=== PATIENT | female | born 1945 | race Caucasian/White ===

== ENCOUNTER → 2024-02-23 07:33 | Outpatient (REF) | payer OTHER, SELFPAY | LOC: HWRAD 07:33 | PROVIDERS: ATTENDING PHYSICIAN Emergency Medicine | DX: M54.2 Cervicalgia (principal) | CPT/HCPCS: 72052 ==

== ENCOUNTER → 2024-05-16 07:03 | Outpatient (REF) | payer OTHER, SELFPAY | LOC: HWWDC 07:03 | PROVIDERS: ATTENDING PHYSICIAN Emergency Medicine | DX: Z12.31 Encounter for screening mammogram for malignant neoplasm of breast (principal) | CPT/HCPCS: 77063; 77067 ==

== ENCOUNTER → 2024-09-01 07:22 | Outpatient (REF) | payer OTHER, SELFPAY | LOC: HWRAD 07:22 | PROVIDERS: ATTENDING PHYSICIAN Internal Medicine Critical Care Medicine; FAMILY PHYSICIAN Emergency Medicine | DX: R49.0 Dysphonia (principal); R91.1 Solitary pulmonary nodule | CPT/HCPCS: 71250; 76536 ==

== ENCOUNTER → 2025-01-29 07:41 | Outpatient (REF) | payer OTHER, SELFPAY | LOC: HWRAD 07:41 | PROVIDERS: ATTENDING PHYSICIAN Internal Medicine Nephrology; FAMILY PHYSICIAN Emergency Medicine | DX: I10 Essential (primary) hypertension (principal); N18.31 Chronic kidney disease, stage 3a | CPT/HCPCS: 76770 ==

== ENCOUNTER → 2025-09-12 07:33 | Outpatient (REF) | payer OTHER, SELFPAY | LOC: HWRAD 07:33 | PROVIDERS: ATTENDING PHYSICIAN Internal Medicine Critical Care Medicine; FAMILY PHYSICIAN Nurse Practitioner Family | DX: R91.1 Solitary pulmonary nodule (principal) | CPT/HCPCS: 71250 ==

== ENCOUNTER → 2025-10-15 08:36 | Outpatient (REF) | payer OTHER, SELFPAY | LOC: HWWDC 08:36 | PROVIDERS: ATTENDING PHYSICIAN Nurse Practitioner Family | DX: Z12.31 Encounter for screening mammogram for malignant neoplasm of breast (principal) | CPT/HCPCS: 77063; 77067 ==